=== PATIENT | male | born 1980 | race Caucasian/White ===

== ENCOUNTER 2023-11-18 06:26 | Day surgery (SDC) | payer OTHER, SELFPAY ==
[2023-11-18] VITALS (17 sets, daily range): BP systolic 128–204; BP diastolic 59–119; BMI 38.5
[2023-11-18 08:50] LABS: Glucose - Point of Care 155 mg/dl (70-99)
[2023-11-18] MEDS: NORMOSOL-R 1000 IV (09:16)
[2023-11-18] MEDS: TYLENOL 1000 MG PO (09:33)
[2023-11-18] MEDS: VISKEN 20 MG PO (09:39)
--- NOTE | 2023-11-18 09:43 | PTCARENOTE ---
Patients BP on arrival was high and was 204/113. Patients BP rechecked and was 194/113. Patient did take his Hydralazine this am but not his Pindolol. Dr. Olvera notified. Dr. Izaguirre also notified and orders to give patient Pindolol 20 mg po as a
one time dose. Patient verified his home dose prior to administration. Will monitor patient.
[2023-11-18 11:56] LABS: Glucose - Point of Care 148 mg/dl (70-99)
[2023-11-18] MEDS: ZOFRAN 4 MG IV (12:12)
[2023-11-18] MEDS: SUBLIMAZE 50 MCG IV ×3 (12:14→13:37)
[2023-11-18] MEDS: SUBLIMAZE 25 MCG IV (13:04)
== END 2023-11-18 14:43 | disposition home or self-care (01) ==
LOC: SDS 06:26
PROVIDERS: ATTENDING PHYSICIAN Specialist
DX: N44.2 Benign cyst of testis (principal); N45.3 Epididymo-orchitis; Z98.890 Other specified postprocedural states
CPT/HCPCS: 54520; 88305; 88311; 82962; J1580

== ENCOUNTER 2023-11-25 18:30 | Emergency (ER) | payer OTHER, SELFPAY ==
[2023-11-25 18:37] VITALS: BP 171/108
[2023-11-25 19:19] LABS: Urine Albumin Negative (Neg - Trace); Urine Bilirubin Negative (Negative); Urine Character Clear (Clear); Urine Color Yellow; Urine Glucose 1+ (Negative); Urine Ketone Negative (Negative); Urine Leukocyte 1+ (Negative); Urine Nitrite Negative (Negative); Urine Occult Blood Negative (Negative); Urine Specific Gravity 1.015 (<1.030); Urine Urobilinogen Negative (Neg - 1+); Urine pH 6.5 (5.0-9.0)
[2023-11-25 19:22] LABS: % Basophils 1.1 % (0-2); % Eosinophils 3.1 % (0-6); % Immature Granulocytes 0.3 % (0-0.5); % Lymphocytes 23.1 % (20.5-51.1); % Monocytes 6.2 % (1.7-9.3); % Neutrophils 66.2 % (42.2-75.2); Absolute Basophils 0.2 10^3/uL (0-0.2); Absolute Eosinophils 0.4 10^3/uL (0-0.7); Absolute Lymphocytes 3.2 10^3/uL (1.2-3.4); Absolute Monocytes 0.9 10^3/uL (0.1-0.6); Absolute Neutrophils 9.2 10^3/uL (1.4-6.5); Hematocrit 41.3 % (39.0-52.0); Hemoglobin 14.5 g/dL (13.0-18.0); Mean Corp Hgb Conc. 35.1 g/dL (33.0-37.0); Mean Corpuscular Hgb 28.2 pg (27.0-31.0); Mean Corpuscular Volume 80.4 fL (80.0-94.0); Mean Platelet Volume 9.4 fL (7.4-10.4); Nucleated Red Blood Cells % 0 % (-); Platelet Count 388 10^3/uL (130-400); Red Blood Cell Count 5.14 10^6/uL (4.70-6.10); Red Cell Dist. Width 13.6 % (11.5-14.5); White Blood Cell Count 13.8 10^3/uL (4.8-10.8)
[2023-11-25 19:34] LABS: ALT (SGPT) 19 U/L (0-50); AST (SGOT) 20 U/L (17-59); Albumin 4.6 g/dl (3.5-5.0); Alkaline Phosphatase 86 U/L (38-126); Blood Urea Nitrogen 10 mg/dl (9-20); Carbon Dioxide 23 mmol/L (22-30); Chloride 104 mmol/L (98-107); Glucose 146 mg/dl (70-99); Potassium 4.2 mmol/L (3.5-5.1); Sodium 138 mmol/L (135-145); Total Bilirubin 0.5 mg/dl (0.2-1.3); Total Protein 7.6 g/dl (6.3-8.2); eGFR > 60.00
[2023-11-25 19:35] LABS: Urine Bacteria Few (Negative); Urine Mucus Few; Urine Red Blood Cell 0-2 /HPF (0-2); Urine Squamous Cell >30 /LPF (Few)
--- NOTE | 2023-11-25 21:12 | ED.GENMED ---
History of Present Illness
<Nickolas Phoenix DO - Last Filed: 11/26/23 19:29>
General
Chief Complaint: Post Operative Problem(s)
Source: patient
Time Seen by Provider: 11/25/23 20:38
Travel History
Have you had any contact with someone who has COVID-19?: No
Do you have any symptoms of coronavirus? Fever > 100 degrees, chills, cough, shortness of breath, sore throat, loss of taste or smell, muscle aches, or headache?: No
History of Present Illness
History of Present Illness:
43-year-old male presents to the emergency room complaining of pain and swelling to right inguinal region. 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 The reason for the surgery was chronic pain in his right testicle
after a inguinal hernia repair with mesh. Patient was feeling much improvement of his chronic pain after the surgery. He took off his pressure dressing today and shortly thereafter began having pain and what he thought was increased swelling in
the area.
Past History
<Nickolas Phoenix DO - Last Filed: 11/26/23 19:29>
Past History
ED Past Medical History: None
ED Past Surgical History: Other (left shoulder surgery x 2)
Phy Exam
<Nickolas Phoenix DO - Last Filed: 11/26/23 19:29>
Physical Exam
Physical Exam:
General: Awake, Alert, Oriented X3. No acute distress.
Vitals: unremarkable
Head: Atraumatic
Eyes: Pupils equal, EOMI
Throat: Airway intact, no exudates
Neck: Trachea midline
Lungs: Clear and equal b/l
Heart: Regular rate, no murmurs
Abd: Soft, Nontender, No pulsatile mass
Genitalia: Normal-appearing penis. Right scrotum empty but not tender. Right inguinal incision dry and intact. Ecchymosis noted around the incision. Small hematoma/mass palpated medial to the incision which is also tender.
Neuro: Cranial nerves intact, muscle strength equal bilaterally, cerebellar exam normal
Skin: Warm, dry, no rash
Extremities: pulses equal b/l, no edema
Course
Sarahlt;Nickolas Phoenix, DO - Last Filed: 11/26/23 19:29>
Orders/Labs/Results
Orders:
Orders
11/25/23 18:43
Electrocardiogram (*1) Urgent
Reason for Study: Tachycardia
EKG- Treatment ONCE
11/25/23 19:07
Complete Blood Count/With Diff Urgent
Comprehensive Metabolic Panel Urgent
Urinalysis Reflex To Culture Urgent
Date Specimen was Collected: 11/25/23
Time Specimen was Collected: 18:43
Urine Microscopic Reflex Cult Urgent
Urine Culture Urgent
TRAY Source: U
Specimen Description:
Date Specimen was Collected: 11/25/23
Time Specimen was Collected: 18:43
11/25/23 21:15
0.9% Sodium Chloride 1000 ml [Nss] 1,000 ml IV BOLUS
Ketorolac [Toradol] 15 mg IV NOW STA
11/25/23 21:16
Ondansetron Injectable [Zofran] 4 mg IV NOW STA
11/25/23 21:33
Diphenhydramine [Benadryl] 50 mg IV NOW STA
Hydrocortisone Sod Succinate [Solu-Cortef] 200 mg IV NOW STA
11/25/23 21:45
CT Abd/pelvis W Iv Cont Urgent
Comment:
Reason For Exam: pain, swelling right groin s/p orchiecotmy
11/26/23 00:09
Morphine Sulfate 4 mg IV NOW STA
11/26/23 01:01
Oxycodone/Acetaminophen [Percocet 5/325] 1 tablet PO NOW STA
Abnormal Lab Results
11/25/23
19:07
WBC 13.8 H 10^3/uL
(4.8-10.8)
Absolute Neuts (auto) 9.2 H 10^3/uL
(1.4-6.5)
Absolute Monos (auto) 0.9 H 10^3/uL
(0.1-0.6)
Glucose 146 H mg/dl
(70-99)
Leukocyte Esterase Rfl 1+ A
(Negative)
Urine Bacteria (Reflex) Few A
(Negative)
Urine Glucose 1+ A
(Negative)
11/25/23 19:07
11/25/23 19:07
Vital Signs
Initial and Last Documented VS:
Initial Vital Signs
Temp Pulse Resp BP Pulse Ox
98.4 F 130 18 171/108 100
11/25/23 18:37 11/25/23 18:37 11/25/23 18:37 11/25/23 18:37 11/25/23 18:37
Last Documented Vital Signs
Temp Pulse Resp BP Pulse Ox
98.3 F 97 16 155/94 93
11/25/23 23:04 11/26/23 00:36 11/26/23 00:14 11/26/23 00:36 11/26/23 00:36
<Fabian Hays, DO - Last Filed: 11/26/23 00:52>
Orders/Labs/Results
Orders:
Orders
11/25/23 18:43
Electrocardiogram (*1) Urgent
Reason for Study: Tachycardia
EKG- Treatment ONCE
11/25/23 19:07
Complete Blood Count/With Diff Urgent
Comprehensive Metabolic Panel Urgent
Urinalysis Reflex To Culture Urgent
Date Specimen was Collected: 11/25/23
Time Specimen was Collected: 18:43
Urine Microscopic Reflex Cult Urgent
Urine Culture Urgent
TRAY Source: U
Specimen Description:
Date Specimen was Collected: 11/25/23
Time Specimen was Collected: 18:43
11/25/23 21:15
0.9% Sodium Chloride 1000 ml [Nss] 1,000 ml IV BOLUS
Ketorolac [Toradol] 15 mg IV NOW STA
11/25/23 21:16
Ondansetron Injectable [Zofran] 4 mg IV NOW STA
11/25/23 21:33
Diphenhydramine [Benadryl] 50 mg IV NOW STA
Hydrocortisone Sod Succinate [Solu-Cortef] 200 mg IV NOW STA
11/25/23 21:45
CT Abd/pelvis W Iv Cont Urgent
Comment:
Reason For Exam: pain, swelling right groin s/p orchiecotmy
11/26/23 00:09
Morphine Sulfate 4 mg IV NOW STA
11/26/23 01:01
Oxycodone/Acetaminophen [Percocet 5/325] 1 tablet PO NOW STA
Abnormal Lab Results
11/25/23
19:07
WBC 13.8 H 10^3/uL
(4.8-10.8)
Absolute Neuts (auto) 9.2 H 10^3/uL
(1.4-6.5)
Absolute Monos (auto) 0.9 H 10^3/uL
(0.1-0.6)
Glucose 146 H mg/dl
(70-99)
Leukocyte Esterase Rfl 1+ A
(Negative)
Urine Bacteria (Reflex) Few A
(Negative)
Urine Glucose 1+ A
(Negative)
11/25/23 19:07
11/25/23 19:07
Vital Signs
Initial and Last Documented VS:
Initial Vital Signs
Temp Pulse Resp BP Pulse Ox
98.4 F 130 18 171/108 100
11/25/23 18:37 11/25/23 18:37 11/25/23 18:37 11/25/23 18:37 11/25/23 18:37
Last Documented Vital Signs
Temp Pulse Resp BP Pulse Ox
98.3 F 97 16 155/94 93
11/25/23 23:04 11/26/23 00:36 11/26/23 00:14 11/26/23 00:36 11/26/23 00:36
<Nickolas Phoenix, DO - Last Filed: 11/26/23 19:29>
MDM/Problems Addressed
Differential Diagnosis Includes:
Postoperative hematoma, postoperative seroma, postoperative abscess
MDM/Problems Addressed:
Patient presents with some increased swelling and pain after removing the dressing from his surgery which she had 1 week ago. Discussed the patient's presentation with Dr. Phillips. He recommended obtaining a CT and patient further treatment on
that. Patient signed out to Dr. Hays at 11:00. [address] CT findings were consistent with his postoperative stage. Dr. Hays discussed with Dr. Phillips and patient stable for discharge home
<Nickolas Phoenix, DO - Last Filed: 11/26/23 19:29>
*Radiology
Radiology exam reviewed: radiology read reviewed
<Fabian Hays, DO - Last Filed: 11/26/23 00:52>
*Critical Care Note
Total Time (30-74mins, 75-104mins- exclusive of procedures): Not Applicable
<Fabian Hays, DO - Last Filed: 11/26/23 00:52>
Update Note
Update Note:
12:45 AM Case discussed with urology. The case was initially transitioned pending CT to look for postop infection or expanding hematoma. This CT is consistent with postop hematoma in the right inguinal canal. This was relayed to urology who feels
comfortable with him going home. Patient feels comfortable going home. Discussed compression underwear, ice, NSAIDs and narcotics. Patient has follow-up appointment tomorrow
ED Attending Note
<Nickolas Phoenix DO - Last Filed: 11/26/23 19:29>
-
Portions of this chart may have been created with voice recognition software.� Occasional wrong word or��sound alike� substitutions may have occurred due to the inherent limitations of voice recognition software.
Discharge Plan
Departure
Patient Disposition: Home (Routine Discharge)
Date of Disposition: 11/26/23
Time of Disposition: 00:50
Patient with high blood pressure during this ER visit?: Yes
Discharge Problem:
Postoperative hematoma
Instructions: Postoperative Pain (DC)
Prescriptions:
New
diclofenac potassium 50 mg tablet
50 mg PO BID Qty: 20 0RF
oxycodone 5 mg tablet
5 mg PO Q8H PRN (Reason: Pain) Qty: 14 0RF
No Action
pindolol 10 mg Tablet
20 mg PO BID
metformin 500 mg Tablet
1,000 mg PO BID
hydralazine 50 mg Tablet
50 mg PO TID
losartan 100 mg Tablet
100 mg PO DAILY
glipizide 5 mg Tablet
5 mg PO BID
escitalopram oxalate [Lexapro] 10 mg Tablet
10 mg PO DAILY
insulin glargine [Lantus Solostar U-100 Insulin] 100 unit/mL (3 mL) Insulin Pen
15 - 20 unit SC HSPRN PRN (Reason: elevated BS)
hydromorphone [Dilaudid] 2 mg Tablet
2 mg PO Q4H PRN (Reason: pain )
ondansetron [Zofran ODT] 4 mg Tablet,Disintegrating
4 - 8 mg PO Q8H
Referrals:
Manisha Barbosa CRNP [Family Provider] -
Activity Restrictions/Additional Instructions:
The urologist recommended continuing compression underwear and ice. Instead of Motrin, you can try the diclofenac potassium. Instead of the Dilaudid, you can try the oxycodone. Please keep your appointment tomorrow morning return for worsening
symptoms
Interventions
Interventions:
*Risk Screen - Suicide Last Done: 11/25/23 22:34
*General Assessment Last Done: 11/25/23 22:34
*Neglect/Abuse Screening Last Done: 11/25/23 22:34
ED- Fall Risk Assessment Last Done: 11/25/23 23:32
*ED COVID-19 Vaccine History Last Done: 11/25/23 18:37
*Nursing Disposition Last Done: 11/26/23 01:05
ED-Skin Assessment Last Done: 11/25/23 23:25
Discharge Date and Time
Discharge Date/Time: 11/26/23 01:05
Print Language: [place]
[2023-11-25] MEDS: SOLU-CORTEF 200 MG IV (22:20)
[2023-11-25] MEDS: NSS 1000 IV (22:21)
[2023-11-25] MEDS: ZOFRAN 4 MG IV (22:21)
[2023-11-25] MEDS: TORADOL 15 MG IV (22:21)
[2023-11-25] MEDS: BENADRYL 50 MG IV (22:21)
[2023-11-25 23:04] VITALS: BP 171/102
[2023-11-26] MEDS: MORPHINE SULFATE 4 MG IV (00:13)
[2023-11-26 00:14] VITALS: BP 192/115
[2023-11-26 00:36] VITALS: BP 155/94
[2023-11-26] MEDS: PERCOCET 5/325 1 TABLET PO (01:04)
== END 2023-11-26 01:05 | disposition home or self-care (01) ==
LOC: EMR 18:30
PROVIDERS: EMERGENCY PHYSICIAN Emergency Medicine; FAMILY PHYSICIAN Nurse Practitioner
DX: N99.840 Postprocedural hematoma of a genitourinary system organ or structure following a genitourinary system procedure (principal); N50.811 Right testicular pain; Y83.8 Other surgical procedures as the cause of abnormal reaction of the patient, or of later complication, without mention of misadventure at the time of the procedure; R03.0 Elevated blood-pressure reading, without diagnosis of hypertension; G89.29 Other chronic pain; Z88.8 Allergy status to other drugs, medicaments and biological substances; Z88.1 Allergy status to other antibiotic agents; Z91.041 Radiographic dye allergy status
CPT/HCPCS: 99285; 96375 ×4; 96361; 96374; 74177; 80053; 81003; 81015; 85025; 87086; 93005; Q9967

== ENCOUNTER 2025-01-17 16:20 | Emergency (ER) | payer OTHER, SELFPAY ==
[2025-01-17 16:21] VITALS: BMI 38.4
[2025-01-17 16:32] VITALS: BP 134/71
[2025-01-17 16:50] LABS: Hematocrit 40.2 % (39.0-52.0); Hemoglobin 12.8 g/dL (13.0-18.0); Mean Corp Hgb Conc. 31.8 g/dL (33.0-37.0); Mean Corpuscular Volume 85.2 fL (80.0-94.0); Nucleated Red Blood Cells % 0 % (-); Platelet Count 307 10^3/uL (130-400); Red Cell Dist. Width 14.6 % (11.5-14.5)
[2025-01-17 16:51] LABS: Urine Character Clear (Clear)
[2025-01-17 17:04] LABS: Urine Squamous Cell >30 /LPF (Few)
[2025-01-17 17:06] LABS: Urine White Cell 26-30 /HPF (0-5)
[2025-01-17 17:07] LABS: ALT (SGPT) 15 U/L (0-50); AST (SGOT) 19 U/L (17-59); Albumin 4.3 g/dl (3.5-5.0); Alkaline Phosphatase 71 U/L (38-126); Blood Urea Nitrogen 11 mg/dl (9-20); Calcium 9.7 mg/dl (8.4-10.2); Carbon Dioxide 25 mmol/L (22-30); Chloride 108 mmol/L (98-107); Glucose 155 mg/dl (70-99); Potassium 4.4 mmol/L (3.5-5.1); Sodium 140 mmol/L (135-145); Total Protein 7.1 g/dl (6.3-8.2); eGFR > 60.00
[2025-01-17 19:23] VITALS: BP 148/132
--- NOTE | 2025-01-17 19:59 | ED.GENMED ---
History of Present Illness
General
Chief Complaint: Flank Pain
Source: patient
Exam Limitations: none
Time Seen by Provider: 01/17/25 19:26
Nursing documentation reviewed up to this point in time: agreed with
History of Present Illness
History of Present Illness:
44-year-old male with a past medical history as noted presents to the ER for evaluation of flank pain. Patient reports onset of symptoms and have been constant since that time that she says that the intensity waxes and wanes and at times
especially in the weekend was quite severe. He reports pain in the left flank radiates towards the left lower abdomen. No clear triggering or relieving factors noted. He has had associated urinary frequency and occasional hematuria. Denies
dysuria. He says that he has some nausea when pain becomes intense but no vomiting. He denies any injury or trauma and he says he has had similar symptoms with kidney stones many times in the past. He says that he has been trying to manage his
symptoms with oral morphine left over from prior prescription after surgery as well as with ibuprofen but symptoms not passing quickly which prompted ER visit.
Past History
Past History
ED Past Medical History: None
ED Past Surgical History: Other (left shoulder surgery x 2)
Review of Systems
Review of Systems
All Other Systems: ROS reviewed and negative except as documented in HPI and ROS
Constitutional: Denies fever or chills
Respiratory: Denies trouble breathing
Cardiac: Denies chest pain
ABD/GI: Reports nausea; Denies abdominal pain or vomiting
: Reports frequency, flank pain and bleeding; Denies dysuria
Musculoskeletal: Reports back pain
Neurological: Denies headache
Phy Exam
Physical Exam
Physical Exam:
General: Awake, alert, oriented x3; appears mildly uncomfortable in bed
Head: Normocephalic, atraumatic
Eyes: Conjunctiva normal, sclera anicteric
Throat: Airway intact, handling secretions
Neck: Trachea midline, supple without meningismus
Lungs: Clear to auscultation bilaterally, no wheezing, rales, rhonchi
Heart: Regular rate and rhythm, no murmurs, gallops, or rubs
Abd: Soft, non distended, nontender with no palpable masses
Back: No midline thoracic or lumbar tenderness, mild tenderness to the left paravertebral spinal musculature
Neuro: No gross deficits, ambulatory with normal gait, motor and sensory grossly intact in all extremities
Skin: no rash in area of concern
Extremities: No edema in extremities, warm and well-perfused
Scores
Heart Failure Risk
Heart Failure Risk Score: Not Applicable
Heart Score for Chest Pain Patients
STEMI patient?: Not applicable
Withdrawal Assessment of Alcohol
Withdrawal Assessment Completed?: Not applicable
Course
Orders/Labs/Results
Orders:
Orders
01/17/25 16:35
Complete Blood Count/With Diff Urgent
Comprehensive Metabolic Panel Urgent
Urinalysis Reflex To Culture Urgent
Date Specimen was Collected: 01/17/25
Time Specimen was Collected: 16:32
Urine Microscopic Reflex Cult Urgent
Urine Culture Urgent
TRAY Source: U
Specimen Description:
Date Specimen was Collected: 01/17/25
Time Specimen was Collected: 16:32
01/17/25 19:27
CT Abd/pel Without Iv Or Oral Urgent
Comment:
Reason For Exam: left flank pain
01/17/25 20:05
0.9% Sodium Chloride 500 ml [Nss] 500 ml IV BOLUS
Ketorolac [Toradol] 15 mg IV NOW STA
Morphine Sulfate 4 mg IV NOW STA
Abnormal Lab Results
01/17/25
16:35
WBC 11.2 H 10^3/uL
(4.8-10.8)
Hgb 12.8 L g/dL
(13.0-18.0)
MCHC 31.8 L g/dL
(33.0-37.0)
RDW 14.6 H %
(11.5-14.5)
Absolute Neuts (auto) 6.7 H 10^3/uL
(1.4-6.5)
Absolute Monos (auto) 0.9 H 10^3/uL
(0.1-0.6)
Chloride 108 H mmol/L
(98-107)
Glucose 155 H mg/dl
(70-99)
Urine Ketones 1+ A
(Negative)
Ur Occult Blood Reflex 1+ A
(Negative)
Urine Bilirubin 1+ A
(Negative)
Leukocyte Esterase Rfl 1+ A
(Negative)
Urine RBC 3-6 A /HPF
(0-2)
Urine WBC (Reflex) 26-30 A /HPF
(0-5)
Urine Bacteria (Reflex) Many A
(Negative)
Urine Albumin (Reflex) 2+ A
(Neg - Trace)
01/17/25 16:35
01/17/25 16:35
Vital Signs
Initial and Last Documented VS:
Initial Vital Signs
Temp Pulse Resp BP Pulse Ox
36.6 C 77 18 134/71 98
01/17/25 16:32 01/17/25 16:32 01/17/25 16:32 01/17/25 16:32 01/17/25 16:32
Last Documented Vital Signs
Temp Pulse Resp BP Pulse Ox
36.6 C 77 16 148/132 98
01/17/25 16:32 01/17/25 16:32 01/17/25 20:12 01/17/25 19:23 01/17/25 20:12
MDM/Problems Addressed
Differential Diagnosis Includes:
Nephrolithiasis, UTI/pyelonephritis, musculoskeletal pain
MDM/Problems Addressed:
44-year-old male with history of kidney stones presents with left flank pain for the past few days similar to prior kidney stones. Vitals and exam as above. Notably afebrile with normal heart rate and normal blood pressure. He had lab work sent
in triage including a CBC which shows a marginal leukocytosis. CMP shows acceptable renal function. His urinalysis is positive for WBCs as well as RBCs�there are many bacteria but many squamous cells as well suggesting contamination. Will send
for a CT of the abdomen pelvis. Provide fluids and pain control. Reassess after the above.
Prior to CT patient did pass a small what appears to be a kidney stone in this toilet. He is still having some residual pain. Will proceed with CAT scan.
CT reviewed and shows no signs of nephrolithiasis or other acute intra-abdominal pathology. There is some bladder wall thickening which can occur in the setting of infection. I had a long discussion with the patient�possible that pain was from
kidney stone and that he passed it in the toilet prior to CT. Is also possible that his pain is from infection/pyelonephritis especially with abnormal urinalysis and bladder wall thickening on CT. Certainly could also be musculoskeletal pain with
contaminated urine. Fortunately at this point he has no signs of sepsis. I think he is a reasonable candidate for discharge on a course of oral antibiotics. Advised good hydration and we spoke about pain control strategies at home. He feels very
comfortable with this plan. We spoke about return precautions all questions answered.
*Radiology
Radiology exam reviewed: radiology read reviewed
*Pulse Oximetry
SaO2: 98
Oxygen Mode of Delivery: Room air
Patient hypoxic: no (98%)
*Critical Care Note
Total Time (30-74mins, 75-104mins- exclusive of procedures): Not Applicable
Data Reviewed
Source: patient, records and spouse
ED Attending Note
-
Portions of this chart may have been created with voice recognition software.� Occasional wrong word or��sound alike� substitutions may have occurred due to the inherent limitations of voice recognition software.
Discharge Plan
Departure
Patient Disposition: Home (Routine Discharge)
Date of Disposition: 01/17/25
Time of Disposition: 21:10
Patient with high blood pressure during this ER visit?: Yes
Discharge Problem:
Flank pain, Acute UTI
Instructions: Flank Pain (DC), Urinary tract infection in adults - ED discharge instructions
Prescriptions:
New
amoxicillin-pot clavulanate 875-125 mg tablet
1 tab PO BID 7 Days Qty: 14 0RF
No Action
pindolol 10 mg Tablet
20 mg PO BID
metformin 500 mg Tablet
1,000 mg PO BID
hydralazine 50 mg Tablet
50 mg PO TID
losartan 100 mg Tablet
100 mg PO DAILY
glipizide 5 mg Tablet
5 mg PO BID
escitalopram oxalate [Lexapro] 10 mg Tablet
10 mg PO DAILY
insulin glargine [Lantus Solostar U-100 Insulin] 100 unit/mL (3 mL) Insulin Pen
15 - 20 unit SC HSPRN PRN (Reason: elevated BS)
hydromorphone [Dilaudid] 2 mg Tablet
2 mg PO Q4H PRN (Reason: pain )
ondansetron [Zofran ODT] 4 mg Tablet,Disintegrating
4 - 8 mg PO Q8H
diclofenac potassium 50 mg tablet
50 mg PO BID Qty: 20 0RF
oxycodone 5 mg tablet
5 mg PO Q8H PRN (Reason: Pain) Qty: 14 0RF
Referrals:
Manisha Barbosa CRNP [Family Provider, General] - Follow up in 5-7 days
Activity Restrictions/Additional Instructions:
Thank you for visiting the Emergency Department at [facility].
1. Please schedule a follow up appointment as directed. Call first thing tomorrow morning to make an appointment.
2. If indicated, please take your medications as instructed and indicated on discharge paperwork.
3. If any of your symptoms do not improve, or persist, or become more severe within 6-12 hours, please return to the emergency department for further care.
4. Please return to the emergency department if you develop a headache, neck pain/stiffness, fever greater than 100.4F, chest pain, shortness of breath, persistent nausea, vomiting, slurred speech, difficulty walking, numbness/tingling, weakness,
signs of infection or any other symptoms that are worrisome to you.
Please call [phone] if you have any questions.
Interventions
Interventions:
*Risk Screen - Suicide Last Done: 01/17/25 16:32
*General Assessment Last Done: 01/17/25 16:32
*Neglect/Abuse Screening Last Done: 01/17/25 19:03
*ED- Fall Risk Assessment Last Done: 01/17/25 16:32
*ED COVID-19 Vaccine History Last Done: 01/17/25 16:32
[place]-Jknbng[place] Assessment Last Done: 01/17/25 19:03
ED-Male Genitourinary Assessment Last Done: 01/17/25 19:03
Discharge Date and Time
Print Language: CHINESE
[2025-01-17] MEDS: MORPHINE SULFATE 4 MG IV (20:18)
[2025-01-17] MEDS: NSS 500 IV (20:18)
[2025-01-17] MEDS: TORADOL 15 MG IV (20:19)
[2025-01-17] MEDS: ROXICODONE 5 MG PO (21:37)
[2025-01-17] MEDS: AUGMENTIN 875 MG/125 MG 1 TABLET PO (21:39)
[2025-01-17 21:41] VITALS: BP 138/79
== END 2025-01-17 21:41 | disposition home or self-care (01) ==
LOC: EMR 16:20
PROVIDERS: Emergency Medicine; EMERGENCY PHYSICIAN Emergency Medicine; FAMILY PHYSICIAN Nurse Practitioner
DX: N39.0 Urinary tract infection, site not specified (principal); Z87.442 Personal history of urinary calculi
CPT/HCPCS: 99284; 96374; 96375; 96361; 74176; 80053; 81003; 81015; 85025; 87077; 87086